=== PATIENT | female | born 1955 | race Caucasian/White ===

== ENCOUNTER → 2017-04-17 | Outpatient (CLI) | payer OTHER ==
--- NOTE | 2017-04-20 14:30 | MAMMOGRAPHY REPORT ---
BILATERAL DIGITAL SCREENING MAMMOGRAM WITH CAD: 04/17/2017 CLINICAL HISTORY: Patient presents for routine screening. S/P bilateral augmentation. TECHNIQUE: Current study was also evaluated with a Computer Aided Detection (CAD) system. Bilateral CC and MLO views including implant displaced views were obtained. COMPARISON: Comparison is made to exams dated: 03/26/2016 mammogram, 03/22/2015 mammogram, 01/30/2014 m ammogram, 12/30/2012 mammogram, 08/26/2011 mammogram, and 07/23/2010 ultrasound - [facility]. BREAST COMPOSITION: There are scattered areas of fibroglandular density in both breasts. FINDINGS: No suspicious masses, calcifications, or areas of architectural distortion are noted in ei ther breast. There has been no significant interval change compared to prior exams. Bilateral subpec shahab saline implants are intact. IMPRESSION: ACR BI-RADS CATEGORY 2: BENIGN There is no mammographic evidence of malignancy. A 1 year screening mammogram is recommended. The pa tient will receive written notification of the results. Approximately 10% of breast cancers are not detected with mammography. A negative mammographic report should not delay biopsy if a clinically suggestive mass is present. Connie Ruiz M.D. /:04/17/2017 15:26:27 Medical Billing Instructor: Trinity Webster, [facility] letter sent: Normal 1/2 BI-RADS Code: ACR BI-RADS Category 2: Benign
== END | disposition home or self-care (01) ==
LOC: C.MAMM 13:35
PROVIDERS: ATTEND Obstetrics & Gynecology
DX: Z12.31 Encounter for screening mammogram for malignant neoplasm of breast (principal); Z98.82 Breast implant status

== ENCOUNTER → 2017-12-03 | Outpatient (CLI) | payer OTHER | END | disposition home or self-care (01) | LOC: C.PAPS 09:56 | PROVIDERS: ATTEND Obstetrics & Gynecology | DX: Z01.419 Encounter for gynecological examination (general) (routine) without abnormal findings (principal) ==

== ENCOUNTER 2017-12-28 12:43 | Emergency (ER) | payer OTHER ==
[~2017-12-28] VITALS: Ht 162.6 cm; Wt 63.0 kg
[2017-12-28 12:51] VITALS: TEMP 36.6; Ht 162.6 cm; Wt 63.0 kg
[2017-12-28] MEDS ORDERED: SODIUM CHLORIDE 0.9% 1000ML 1,000 ML IV STA ×2 (13:18→15:08)
[2017-12-28] MEDS ORDERED: ALPRAZOLAM 0.5 MG TAB PO STA ×3 (13:18→17:06)
--- NOTE | 2017-12-28 13:35 | EMERGENCY ROOM VISIT NOTE ---
History First contact with patient: 13:08 Chief Complaint: DIZZY Stated Complaint: DIZZINESS, LIGHTHEADED, DIARRHA SINCE THURSDAY Nursing Triage Summary: Patient reports feeling "sick and scared" for the last 3 days. Patient had diarrhea 2 days ago. Denies vomiting. History of Present Illness The patient is a 62 year old female who presents to the Emergency Room via private vehicle accompanied by friend who is a psychologist with complaints of "dizziness, lightheaded, diarrhea since ". 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 She states that the peak of the stress occurred on Thursday. She states that she went out to dinner then Thursday and woke up morning with diarrhea. She is concerned she may have acquired food poisoning and this diarrhea lasted 3 days. Today is the first day she notes without diarrhea. She states that she also this past she began transitioning from Xanax to BuSpar as Rx by Dr. Espinal. She states that this past week she has had to take more Xanax because of her anxiety. She notes fevers and chills in the previous days but none today. She denies any chest pain or shortness of breath. She states that she feels quite anxious noting that with her diarrhea she has lost weight, and states that with the medication transition as well as the anxiety from work she has been under a lot of stress. She states that she has a father who passed from pancreatic cancer and mother with thyroid cancer. She personally notes a history of thyroid disease. She at this time notes no pain but feels anxious. There is dizziness, intermittent lightheadedness. She states that when she woke up today around 4 AM she felt unsafe and she felt very anxious. She called her family doctors and they recommended she come to the emergency department for evaluation. She has had no chest pain and no sensation of doom. She denies any speech troubles or unilateral weakness. She denies any suicidal or homicidal ideations. Review of Systems A complete 10-point Review of Systems was discussed with the patient, with pertinent positives and negatives listed in the History of Present Illness. All remaining Review of Systems questions can be considered negative unless otherwise specified. Past Medical/Surgical History Anxiety. Thyroid disease. Family History Pancreatic cancer. Thyroid cancer. Social History Patient lives locally and owns a restaurant. Current/Historical Medications Scheduled Citalopram Hydrobromide (Celexa), 40 MG PO DAILY Levothyroxine Sodium (Synthroid), Unknown Dose PO DAILY Scheduled PRN Alprazolam (Xanax), 1 MG PO DAILY PRN for Anxiety Physical Exam Vital Signs Date Time Temp Pulse Resp B/P (MAP) Pulse Ox O2 Delivery O2 Flow Rate FiO2 12/28/17 14:29 96 Room Air 12/28/17 14:29 73 154/94 96 Room Air 12/28/17 13:14 88 12/28/17 12:51 36.6 121 32 135/98 98 Room Air Physical Exam VITAL SIGNS - Vital signs and nursing notes were reviewed. Patient is tachycardic at 121 bpm, and a respiratory rate 32. She is afebrile. Normotensive. O2 sat appropriate. GENERAL -62-year-old female appearing her stated age who is in no acute distress but does appear to be anxious. She is nontoxic in appearance. Communicates well with provider and answers questions appropriately. SKIN - Without rashes. No meningeal or petechial rashes. HEAD - NC/AT. EYES - PERRL with EOMI bilaterally. Sclera anicteric. EARS - No deformities of external structures noted on gross examination bilaterally. External auditory canals without discharge or otorrhea. Tympanic membranes pearly barragan without retraction or bulging. No fluid or purulent material visualized behind the TM. Handle of malleus, umbo, cone of light, pars tensa/flaccid all easily visualized. NOSE - Midline and without cyanosis. No epistaxis or purulent drainage noted. Septum midline without deviation or septal hematoma noted. MOUTH/OROPHARYNX - Without perioral cyanosis. Buccal mucosa pink and moist and without leukoplakia. Tongue midline with equal elevation of palate bilaterally. No tonsillar hypertrophy, erythema, or exudates noted. Fair dentition noted. NECK - Neck with FROM. Supple to palpation. No lymphadenopathy noted. No nuchal rigidity. No meningismus LUNGS - Chest wall symmetric without accessory muscle use, intercostals retractions, or central cyanosis. Normal vesicular breath sounds CTA B/L. No wheezes, rales, or rhonchi appreciated. CARDIAC - RRR with S1/S2. No murmur, rubs, or gallops appreciated. EXTREMITIES - No clubbing or peripheral cyanosis. No pretibial edema present. + 5/5 strength noted in UE/LE bilaterally. NEUROLOGIC - Cranial nerves II through XII grossly intact. Sensory intact to light touch throughout. PSYCH - A&O, and cooperates fully with examiner. Pt is very pleasant and interacts well with examiner. Medical Decision & Procedures Laboratory Results 12/28/17 13:40 Red Blood Count 4.97, Mean Corpuscular Volume 90.1, Mean Corpuscular Hemoglobin 34.0, Mean Corpuscular Hemoglobin Concent 37.7, Mean Platelet Volume 9.7, Neutrophils (%) (Auto) 68.7, Lymphocytes (%) (Auto) 22.7, Monocytes (%) (Auto) 8.2, Eosinophils (%) (Auto) 0.2, Basophils (%) (Auto) 0.1, Neutrophils # (Auto) 6.05, Lymphocytes # (Auto) 2.00, Monocytes # (Auto) 0.72, Eosinophils # (Auto) 0.02, Basophils # (Auto) 0.01 12/28/17 13:40 Test 12/28/17 13:40 12/28/17 15:35 White Blood Count 8.81 K/uL (4.8-10.8) Red Blood Count 4.97 M/uL (4.2-5.4) Hemoglobin 16.9 g/dL (12.0-16.0) Hematocrit 44.8 % (37-47) Mean Corpuscular Volume 90.1 fL (80-100) Mean Corpuscular Hemoglobin 34.0 pg (25-34) Mean Corpuscular Hemoglobin Concent 37.7 g/dl (32-36) Platelet Count 294 K/uL (130-400) Mean Platelet Volume 9.7 fL (7.4-10.4) Neutrophils (%) (Auto) 68.7 % Lymphocytes (%) (Auto) 22.7 % Monocytes (%) (Auto) 8.2 % Eosinophils (%) (Auto) 0.2 % Basophils (%) (Auto) 0.1 % Neutrophils # (Auto) 6.05 K/uL (1.4-6.5) Lymphocytes # (Auto) 2.00 K/uL (1.2-3.4) Monocytes # (Auto) 0.72 K/uL (0.11-0.59) Eosinophils # (Auto) 0.02 K/uL (0-0.5) Basophils # (Auto) 0.01 K/uL (0-0.2) RDW Standard Deviation 39.7 fL (36.4-46.3) RDW Coefficient of Variation 12.2 % (11.5-14.5) Immature Granulocyte % (Auto) 0.1 % Immature Granulocyte # (Auto) 0.01 K/uL (0.00-0.02) Anion Gap 11.0 mmol/L (3-11) Est Creatinine Clear Calc Drug Dose 61.5 ml/min Estimated GFR () 87.6 Estimated GFR (Non- 75.5 BUN/Creatinine Ratio 7.5 (10-20) Calcium Level 9.6 mg/dl (8.5-10.1) Magnesium Level 2.6 mg/dl (1.8-2.4) Total Bilirubin 0.6 mg/dl (0.2-1) Aspartate Amino Transf (AST/SGOT) 10 U/L (15-37) Alanine Aminotransferase (ALT/SGPT) 22 U/L (12-78) Alkaline Phosphatase 103 U/L (45-117) Total Creatine Kinase 43 U/L (26-192) Creatine Kinase MB < 0.5 ng/ml (0.5-3.6) Creatine Kinase MB Ratio (0-3.0) Troponin I < 0.015 ng/ml (0-0.045) Total Protein 7.9 gm/dl (6.4-8.2) Albumin 4.4 gm/dl (3.4-5.0) Globulin 3.5 gm/dl (2.5-4.0) Albumin/Globulin Ratio 1.3 (0.9-2) Thyroid Stimulating Hormone (TSH) 0.622 uIu/ml (0.300-4.500) Urine Color YELLOW Urine Appearance CLEAR (CLEAR) Urine pH 7.5 (4.5-7.5) Urine Specific [place] 1.004 (1.000-1.030) Urine Protein NEG (NEG) Urine Glucose (UA) NEG (NEG) Urine Ketones NEG (NEG) Urine Occult Blood NEG (NEG) Urine Nitrite NEG (NEG) Urine Bilirubin NEG (NEG) Urine Urobilinogen NEG (NEG) Urine Leukocyte Esterase MODERATE (NEG) Urine WBC (Auto) 1-5 /hpf (0-5) Urine RBC (Auto) 0-4 /hpf (0-4) Urine Hyaline Casts (Auto) 0 /lpf (0-5) Urine Epithelial Cells (Auto) 5-10 /lpf (0-5) Urine Bacteria (Auto) NEG (NEG) Medications Administered Medications (Trade) Dose Ordered Sig/Arely Route Start Time Stop Time Status Last Admin Dose Admin Sodium Chloride 1,000 ml @ 999 mls/hr Q1H1M STAT IV 12/28/17 13:18 12/28/17 14:18 DC 12/28/17 13:45 999 MLS/HR Alprazolam (Xanax Tab) 1 mg NOW STAT PO 12/28/17 13:18 12/28/17 13:19 DC 12/28/17 13:27 1 MG Sodium Chloride 1,000 ml @ 999 mls/hr Q1H1M STAT IV 12/28/17 15:08 12/28/17 16:08 DC 12/28/17 15:42 999 MLS/HR Medical Decision Patient was seen and evaluated as above. She has a history of anxiety. There are many stressors in her life which are coming together at the same time. Review was performed of nursing notes and vital signs. After obtaining a thorough history and physical examination the above work up was performed. She notes diarrhea following eating foods earlier in the week, a large stressor at work, as well as medication titration switching. I suspect these all coming together at the same time are likely contributing to an anxiety reaction. She denies suicidal or homicidal ideations. She is also likely dehydrated with the diarrhea. She was given 2 L of fluids here as well as Xanax and feeling much better. Bedside EKG was performed per my interpretation reveals normal sinus rhythm, rate of 83 bpm. There is T-wave inversion with questionable depression in the anterior leads. No previous for comparison. She is to follow with her family doctor regarding such. Without chest pain I do not suspect this likely to be cardiac in nature. Follow-up the however is important. It is also important note that she is felt the symptoms for greater than 6 hours. CBC reveals a concerning leukocytosis. No anemia. Hemoglobin is elevated at 16.9. Metabolic panel reveals no evidence of kidney or liver failure. TSH normal. Troponin negative. Urine reveals leukocytes and epithelial cells. No nitrites. I do not suspect infection. She appears stable for outpatient management. Friend will be driving. She is to return with worsening. The patient was educated upon management, had questions answered prior to discharge , and was discharged home in good condition. Case was discussed with the attending physician. I attest that I have personally reviewed the patient medication list. I attest that I have reviewed the patient's blood pressure and it was found to be elevated In the evaluation and treatment of this patient the following differential diagnoses were entertained: SD, PE, anxiety, overdose, dehydration, UTI, among others. Impression Primary Impression: Anxious reaction Additional Impression: Dehydration Departure Information Dispostion Home / Self-Care Condition GOOD Referrals No Doctor, Assigned (PCP) Patient Instructions My [facility] Additional Instructions He was seen in the emergency department for dizziness, lightheadedness and diarrhea. I suspect that with the stressors you are experiencing in your life that you are experiencing an anxious reaction to such. I have given you home pack of your Xanax. You may break a bar in half to make 0.5 mg as needed for anxiety. Please refer to previous prescriptions in regard to how often to take these. Please call your family doctor to schedule follow-up. Please stay well hydrated and eat a well-balanced diet. Please follow-up with your family doctor regarding your EKG abnormality. Please return with any new/concerning symptoms. Thank you for your time. Problem Qualifiers
[2017-12-28] MEDS ORDERED: CITA40TA12 PO (13:59)
[2017-12-28] MEDS ORDERED: ALPR1TAB3 PO (13:59)
[2017-12-28] MEDS ORDERED: LEVO25TA PO (13:59)
[2017-12-28 14:01] LABS: BASO % 0.1 %; BASO ABS # 0.01 K/uL (0-0.2); EOS % 0.2 %; EOS ABS # 0.02 K/uL (0-0.5); HEMATOCRIT 44.8 % (37-47); HEMOGLOBIN 16.9 g/dL (12.0-16.0); IG# 0.01 K/uL (0.00-0.02); LYMPH % 22.7 %; MEAN CELL VOLUME 90.1 fL (80-100); MEAN CORPUSCULAR HGB CONC 37.7 g/dl (32-36); MEAN PLATELET VOLUME 9.7 fL (7.4-10.4); MONO % 8.2 %; MONO ABS # 0.72 K/uL (0.11-0.59); NEUT % 68.7 %; NEUT ABS # 6.05 K/uL (1.4-6.5); PLATELET COUNT 294 K/uL (130-400); RED CELL DISTRIBUTION WIDTH CV 12.2 % (11.5-14.5); RED CELL DISTRIBUTION WIDTH SD 39.7 fL (36.4-46.3); WHITE BLOOD COUNT 8.81 K/uL (4.8-10.8)
[2017-12-28 14:13] LABS: ALBUMIN 4.4 gm/dl (3.4-5.0); ALT/SGPT 22 U/L (12-78); BLOOD UREA NITROGEN 6 mg/dl (7-18); CALCIUM 9.6 mg/dl (8.5-10.1); CARBON DIOXIDE 20 mmol/L (21-32); CREATININE 0.84 mg/dl (0.60-1.20); GLUCOSE 110 mg/dl (70-99); POTASSIUM 3.7 mmol/L (3.5-5.1); SODIUM 137 mmol/L (136-145)
[2017-12-28 14:24] LABS: ALKALINE PHOSPHATASE 103 U/L (45-117); AST/SGOT 10 U/L (15-37); CKMB < 0.5 ng/ml (0.5-3.6); TOTAL PROTEIN 7.9 gm/dl (6.4-8.2)
[2017-12-28 14:29] VITALS: O2SAT 96
[2017-12-28 17:31] VITALS: BP 142/104; PULSE 83; O2SAT 96
== END 2017-12-28 17:33 | disposition home or self-care (01) ==
LOC: C.EDB 12:46
DX: F41.1 Generalized anxiety disorder (principal); E86.0 Dehydration; R94.31 Abnormal electrocardiogram [ECG] [EKG]; E07.9 Disorder of thyroid, unspecified; Z86.59 Personal history of other mental and behavioral disorders; Z80.8 Family history of malignant neoplasm of other organs or systems